=== PATIENT | female | born 1965 | race Caucasian/White ===

== ENCOUNTER 2020-04-26 08:35 | Outpatient (CLI) | payer BC, SELFPAY ==
--- NOTE | ~2020-04-26 | MM_ITS ---
EXAMINATION: MM screening avi BI w ana HISTORY: Screening mammogram TECHNIQUE: Craniocaudal and mediolateral oblique 3-D tomosynthesis images were obtained and synthetic 2-D images were generated. CAD analysis was submitted and interpreted. COMPARISON: 04/27/2018 limited right breast ultrasound 04/21/2018 bilateral mammogram, screening on the left, diagnostic on the right 07/24/2017 diagnostic right mammogram and limited right breast ultrasound 12/31/2016 bilateral digital screening mammogram BREAST PARENCHYMAL COMPOSITION: There are scattered areas of fibroglandular density. FINDINGS: There is a biopsy marker at what is likely a small lymph node in the right axillary tail ar ea; history of benign biopsy report. There is no evidence of suspicious mass, calcification, or architectural distortion to suggest malign merritt in either breast. There has been no suspicious interval change. IMPRESSION: 1. No mammographic evidence of malignancy. 2. Recommend routine screening mammography in one year. BI-RADS Category 1: Negative Reviewed, dictated and finalized at location A. CTOR CAREER
== END 2020-04-26 08:36 | disposition home or self-care (01) ==
LOC: ANHIMG 08:39
PROVIDERS: PCP Internal Medicine; Visit Provider Obstetrics & Gynecology
DX: Z12.31 Encounter for screening mammogram for malignant neoplasm of breast (principal)
CPT/HCPCS: 77063; 77067

== ENCOUNTER 2021-01-05 10:23 | Outpatient (CLI) | payer BC, SELFPAY ==
--- NOTE | ~2021-01-05 | US_ITS ---
EXAMINATION: US pelvic complete DATE: 01/05/2021 10:59 INDICATION: Pelvic and perineal pain. TECHNIQUE: Multiple transabdominal sonographic images of the pelvis were obtained. COMPARISON: None. FINDINGS: The uterus is absent. The ovaries are not visualized. There is no abnormal mass. IMPRESSION: 1. Absent uterus. 2. Ovaries not visualized. Reviewed, dictated and finalized at location A. ERS CLUB REPRESENTATIVE
== END 2021-01-05 10:24 | disposition home or self-care (01) ==
PROVIDERS: PCP Internal Medicine; Visit Provider Family Medicine
DX: R10.2 Pelvic and perineal pain (principal)
CPT/HCPCS: 76856

== ENCOUNTER 2021-04-10 08:55 | Outpatient (CLI) | payer BC, SELFPAY ==
--- NOTE | 2021-04-10 09:02 | ECG_ITS ---
Measurements Intervals [place] Rate: 59 P: 56 VA: 192 QRS: 48 QRSD: 85 T: 47 QT: 375 QTc: 373 Interpretive Statements SINUS BRADYCARDIA BORDERLINE ECG Electronically Signed On 04-10-2021 10:18:03 CRIME PREVENTION POLICE OFFICER by Alton Wick D.O.
== END 2021-04-10 08:56 | disposition home or self-care (01) ==
LOC: ANHSURGERY 08:58
PROVIDERS: PCP Internal Medicine; Visit Provider Obstetrics & Gynecology
DX: E78.5 Hyperlipidemia, unspecified (principal); Z01.818 Encounter for other preprocedural examination; R94.31 Abnormal electrocardiogram [ECG] [EKG]
CPT/HCPCS: 36415; 86850; 86900; 86901; 93005

== ENCOUNTER 2021-04-13 00:58 | Day surgery (SDC) | payer BC, SELFPAY ==
[2021-04-05 10:41] VITALS: BMI 24.7
--- NOTE | 2021-04-05 10:57 | PC.NURSE ---
Report to the Outpatient Waiting Room, entrance under the green pavilion located off [facility], at time 7:30 on date 04/13/21. OR Time: 9:30. - You and your visitor will be asked a series of questions to screen for COVID 19 for your protection. - A mask is required within the hospital. One visitor will be allowed to accompany the patient into the hospital. Patients visitor will be instructed to remain with patient at all times or leave the building. We will allow the visitor to come back to the postoperative area when patient is ready. Preoperative COVID Testing Requirements: No COVID Test needed if: (proof is required; if not received patient will have Rapid Test prior to entry) - Patient has received COVID Vaccine at least 14 days prior to procedure date or - Patient has positive COVID test result within last 90 days of surgery date. COVID Test needed if above criteria is not met Patients may have clear liquids (water, carbonated beverages, clear teas, apple juice) until 3 hours prior to surgery (6:30) with a maximum of 20 ounces. - No food from midnight until time of surgery Take the following medications with a SIP of water the morning of surgery: CLONAZEPAM Medications to discontinue per physician: N/A Date to take last dose: N/A Please no make-up, nail liberian, hairspray, perfume, deodorant, or body powder the day of surgery. No jewelry (including any body piercings) or valuables the day of surgery, leave them at home. Please take a shower or bath the night before, or the morning of, surgery with an antibacterial soap. Wear comfortable, loose fitting clothing. - Jewelry must be removed prior to entering the operating room. Rings and piercings that are not removed may be cut off. - The hospital will not accept responsibility for valuables. - Please leave all valuables, including medications, at home the day of surgery. If you are going home after surgery, a licensed automobile drivers must drive you home. - NO public transportation without another adult. - We recommend that an adult stay with you for 24 hours following discharge. - We also recommend that you do not drive, make important decision, drink alcoholic beverages, or take any drugs that were not prescribed by your health care provider for at least 24 hours after your discharge time. Follow any additional instructions given to you from your surgeon. Telephone instructions given to WINNIE JOHNSTON and asked if any additional questions and then verbalized understanding. Patient advised to call surgeon office or pre surgery nurse liaison [phone] if any additional questions.
--- NOTE | 2021-04-11 07:57 | PM.IMHP ---
H&P: HPI History of Present Illness Date/Time: 04/11/21 07:57 55-year-old 2 para 2 admitted for laparoscopic bilateral salpingo-oophorectomy secondary to pelvic pain and dyspareunia. She had ultrasound that looks unremarkable. She does however continue to have pain with intercourse and this has been unrelenting over some time. She has received the ACOG handout entitled laparoscopy. She had all questions answered. She asked to proceed Chief Complaint: Pelvic pain and dyspareunia Review of Systems Review of Systems: All systems reviewed & are unremarkable except as noted in HPI and below [facility] Social History Social History Smoking status: Never smoker Second hand tobacco smoke exposure: No Alcohol intake: current Drinks per week: 2 Substance use: never Substance use type: does not use Spiritual care concerns: No Meds Home Medications and Allergies Home Medications Medication Instructions Recorded Confirmed Type clonazepam 0.5 mg tablet 0.5 mg PO DAILY #90 tablet 12/14/20 04/05/21 Rx pravastatin 40 mg PO HS 04/05/21 04/05/21 History Allergies Allergy/AdvReac Type Severity Reaction Status Date / Time bee pollen Allergy Unknown Swelling Verified 04/05/21 10:40 sulfamethizole Allergy Unknown Rash Verified 04/05/21 10:40 sulfamethoxazole Allergy Unknown Rash Unverified 04/05/21 10:40 trimethoprim Allergy Unknown Rash Verified 04/05/21 10:40 adhesive AdvReac Unknown SKIN Verified 04/05/21 10:40 BLISTERS FROM EXTENDED EXPOSURE Exam Const: General: no acute distress Eyes: General: appearance normal, both eyes and all related structures Neck: Neck: supple and no JVD Thyroid: thyroid normal Resp: Effort & Inspection: normal respiratory effort Auscultation: clear to auscultation bilaterally Cardio: Rate: regular rate Rhythm: regular rhythm GI: Inspection: non-distended GI Palp: Yes Soft to palpation, No Tenderness to palpation present (GI) and No Guarding due to palpation present (GI) Auscultation: normal bowel sounds : External Female Exam: normal external appearance Speculum Exam - Vagina: normal appearance of the vagina Speculum Exam - Cervix: Cervix absent Bimanual exam- vagina & uterus: uterus absent Bimanual Exam- Adnexa, other: tender bilaterally Skin: General skin exam: no rashes or lesions noted Extrem: General: normal to inspection and no edema Psych: Mental Status: mental status grossly normal Affect: normal affect Assessment and Plan Additional Plan Impression: Chronic pelvic pain in a patient status post hysterectomy. Plan: Laparoscopic bilateral salpingo-oophorectomy. Risks and benefits reviewed. She has already begun on hormone replacement
[2021-04-13] VITALS (8 sets, daily range): BP systolic 93–123; BP diastolic 46–76; PULSE 67–94; RESP 12–16; TEMP 36.5–36.9; O2SAT 95–100
--- NOTE | 2021-04-13 06:40 | WPDHPUPDATE1 ---
History and Physical Update Update Date/Time: 04/13/21 06:40 History and Physical has been reviewed, including an updated exam of the patient. There are NO changes in the patient's condition. Risks, benefits, and alternatives have been discussed and questions answered. Patient agrees to proceed with procedure.
[2021-04-13] MEDS: ACETAMINOPHEN 500 MG TABLET 1000 MG PO (07:47)
[2021-04-13] MEDS: LACTATED RINGERS 1,000 ML 30 ML IV CONT ×2 (07:56→10:19)
[2021-04-13] MEDS: KETOROLAC 15 MG/ML VIAL (*BKC) IV PUSH (08:03)
--- NOTE | 2021-04-13 08:13 | WPDANESEPPF ---
Anes - Initial Pre Proc Eval Procedure: Operation Date: 04/13/21 09:30 Proposed Procedures p Laparoscopic Bilateral Salpingo Oophorectomy - Seven Altman MD Date/Time: 04/13/21 08:13 Surgeon: Seven Altman MD Pre Op Diagnosis: pain, dyspareunia Patient Data Age: 55 Gender: F Height: 1.6 m Weight: 63.7 kg Last Vital Signs Temp 36.9 C 04/13/21 08:04 Pulse 69 04/13/21 08:04 Resp 16 04/13/21 08:04 BP 115/46 L 04/13/21 08:04 Pulse Ox 97 04/13/21 08:04 Allergies Allergy/AdvReac Type Severity Reaction Status Date / Time bee pollen Allergy Mild Swelling Verified 04/13/21 07:45 sulfamethizole Allergy Mild Rash Verified 04/13/21 07:45 sulfamethoxazole Allergy Mild Rash Verified 04/13/21 07:45 trimethoprim Allergy Mild Rash Verified 04/13/21 07:45 adhesive AdvReac Mild SKIN Verified 04/13/21 07:45 BLISTERS FROM EXTENDED EXPOSURE Home Medications Medication Instructions Recorded Confirmed Type clonazepam 0.5 mg tablet 0.5 mg PO DAILY #90 tablet 12/14/20 04/13/21 Rx pravastatin 40 mg PO HS 04/05/21 04/13/21 History hydrocodone-acetaminophen 1 tablet PO Q4H PRN #30 tablet 04/13/21 Rx Patient hx anesthesia problems: none Family hx anesthesia problems: none Results Review: All pre-operative results and documents have been reviewed as part of the pre-operative evaluation. [facility] Surgical History Surgical History (Updated 04/13/21 @ 08:14 by Seven Washington MD) H/O: hysterectomy History of cholecystectomy Social History Social History Smoking status: Never smoker Second hand tobacco smoke exposure: No Alcohol intake: current Drinks per week: 2 Substance use: never Substance use type: does not use Living arrangements: with family Spiritual care concerns: No Anes - Eval Final PreProcedure Day of Procedure 04/13/21 08:13 Patient weight: normal Heart: regular rate and rhythm Lungs: clear to auscultation Airway: Mallampati scale class II Neurological: alert and oriented Last oral intake: >/= 8 hours ASA classification: II Emergent: no Anesthetic plan: proceed Anesthesia type and monitoring: general ETT and standard monitoring Results Review: All pre-operative results and documents have been reviewed as part of the pre-operative evaluation. Informed Consent: The patient's anesthetic plan and its attendant risks and benefits were discussed with the patient/family/POA. Questions were solicited and answers provided to the satisfaction of the patient/family/POA.
--- NOTE | 2021-04-13 10:06 | P.OP_ITS ---
Procedure Note - Detailed Date of Procedure 04/13/21 Pre-op Diagnosis pain, dyspareunia Post-op Diagnosis other (adhesions) Procedure Performed Laparoscopic bilateral salpingo-oophorectomy and extensive lysis of adhesions Surgeon Seven Altman MD Anesthesia general Indications This is a 55-year-old status post hysterectomy with severe pelvic pain bilateral ovarian cyst Findings Absent uterus and cervix. Ovaries were encased in small cyst but markedly adh erent to overlying omentum and bowel. The bowel was attached to the vaginal cuff. Description of Procedure The patient was prepped draped in the normal sterile fashion placed in the dorsal lithotomy position. Under excellent general trach anesthesia weighted speculum placed posterior fornix vagina. A sponge stick was placed in the bladder drained of clear urine. The weighted speculum was removed and gloves were changed. A supraumbilical incision made the Veress needle passed in the abdomen. Abdomen filled filled with CO2 gas filled [id number]. 5mm trocar advanced under direct visualization with the scope in no injury seen. Patient placed in Trendelenburg and a suprapubic incision made. The 5mm trocar advanced under direct visualizat ion assuring no injury. Right lower quadrant incision made and the 10mm trocar advanced under direct visualization assuring no injury. The above findings were seen the adhesions from the colon small bowel to the vagina were thick and thin as well. These were sharply dissected using series whose scissors. A tug and stretch method was undertaken and this was slowly cleared until the bowel was we ll cleared of the vaginal cuff. Irrigation was undertaken to clear. Bilateral ovarian cysts were seen. The left infundibulopelvic structure was skeletonized. Clamped burned and cut with the LigaSure. This was placed in the cul-de-sac in like fashion the right infundibulopelvic structure was skeletonized clamped burned and cut and the ovary and tube removed from the right. These were placed in an Endo-Catch and removed through the right lower quadrant incision. Irrigation undertaken to clear. No other abnormalities were seen the lower site removed. The gas removed from the abdomen. The incisions closed with 4 Monocryl glue. Patient was awakened and went to recovery in satisfactory condition. All sponge, needle, instrument counts were correct. There were no immediate complications noted Estimated Blood Loss 5 Drains No Packing No Pathology yes Complications No immediate complications Condition stable Disposition PACU
[2021-04-13] MEDS: ONDANSETRON INJ 4 MG/2 ML VIAL IV PUSH (11:30)
[2021-04-13] MEDS: SCOPOLAMINE 1.5 MG PATCH TRANSDERM (12:03)
[2021-04-13] MEDS: diphenhydrAMINE HCl INJ 50 MG/ML VIAL 25 MG IV PUSH (12:03)
== END 2021-04-13 13:00 | disposition home or self-care (01) ==
PROVIDERS: PCP Internal Medicine; Visit Provider Obstetrics & Gynecology
PROC: (CPT 49320; principal; 2021-04-13 09:30)
DX: R10.2 Pelvic and perineal pain (principal); N94.10 Unspecified dyspareunia; N73.6 Female pelvic peritoneal adhesions (postinfective); N83.202 Unspecified ovarian cyst, left side; N83.201 Unspecified ovarian cyst, right side; Z90.710 Acquired absence of both cervix and uterus
CPT/HCPCS: 58661; 88305; A9270; J0330; J1100; J1200; J1885; J2250; J2270; J2405; J2704; J7030; J7120

== ENCOUNTER 2021-07-11 07:59 | Outpatient (CLI) | payer BC, SELFPAY ==
--- NOTE | ~2021-07-11 | MM_ITS ---
EXAMINATION: MM screening avi BI w ana HISTORY: Screening mammogram TECHNIQUE: Craniocaudal and mediolateral oblique 3-D tomosynthesis images were obtained and synthetic 2-D images were generated. CAD analysis was submitted and interpreted. COMPARISON: 04/26/2020 bilateral screening mammogram 04/27/2018 limited right breast ultrasound 04/21/2018 bilateral mammogram 12/31/2016 BREAST PARENCHYMAL COMPOSITION: There are scattered areas of fibroglandular density. FINDINGS: Biopsy marker on the right; history of prior benign right breast biopsy. Stable mild fibrog landular asymmetry since 12/31/2016. There is no evidence of suspicious mass, calcification, or archi tectural distortion to suggest malignancy in either breast. There has been no suspicious interval alexandre nge. IMPRESSION: 1. No mammographic evidence of malignancy. 2. Recommend routine screening mammography in one year. BI-RADS Category 2: Benign finding(s). Reviewed, dictated and finalized at location A.
== END 2021-07-11 08:00 | disposition home or self-care (01) ==
LOC: ANHIMG 08:02
PROVIDERS: PCP Internal Medicine; Visit Provider Obstetrics & Gynecology
DX: Z12.31 Encounter for screening mammogram for malignant neoplasm of breast (principal)
CPT/HCPCS: 77063; 77067

== ENCOUNTER 2022-02-28 08:13 | Outpatient (CLI) | payer OTHER, SELFPAY ==
[2022-02-28 08:47] LABS: Basophils Absolute Auto 0.1 K/mm3 (0.0-0.1); Eosinophils Absolute Auto 0.2 K/mm3 (0-0.3); Eosinophils Percent Auto 2.9 % (0-4.4); Hematocrit 41.7 % (37.0-47.0); Hemoglobin 14.1 g/dL (12.0-15.0); Immature Granulocyte Absolute 0.03 K/mm3 (0.00-0.031); Immature Granulocyte Percent A 0.5 % (0-0.5); Lymphocytes Absolute Auto 1.74 K/mm3 (0.9-3.2); Lymphocytes Percent Auto 29.4 % (18.3-44.2); Mean Corpuscular HGB Conc 33.8 g/dl (32-36); Mean Corpuscular Hemoglobin 30.3 pg (26-34); Mean Corpuscular Volume 89.7 fl (80-100); Mean Platelet Volume 9.2 fl (7.4-10.4); Monocytes Absolute Auto 0.4 K/mm3 (0.1-0.6); Monocytes Percent Auto 6.9 % (2.6-8.5); Neutrophils Absolute Auto 3.5 K/mm3 (1.3-6.7); Neutrophils Percent Auto 59.3 % (45.5-73.1); Platelet Count Result 319 k/mm3 (150-375); Red Blood Count 4.65 M/mm3 (4.2-5.4); White Blood Count 5.9 K/mm3 (4.5-10.0)
[2022-02-28 08:57] LABS: Alanine Aminotransferase 20 U/L (6-35); Albumin Level 4.6 g/dL (3.5-5.1); Alkaline Phosphatase 96 U/L (38-126); Anion Gap 3 mmol/L (8-16); Aspartate Amino Transferase 23 U/L (14-36); Bilirubin,Total 0.9 mg/dL (0.2-1.3); Blood Urea Nitrogen 15 mg/dL (7-17); Calcium 9.4 mg/dL (8.4-10.2); Carbon Dioxide 32 mmol/L (22-30); Chloride 107 mmol/L (98-107); Cholesterol 190 mg/dL (0-200); Estimated Glomerular Filt Rate > 60; Glucose 96 mg/dL (65-110); HDL Direct 64 mg/dL; Magnesium 2.1 mg/dL (1.6-2.3); Potassium 4.2 mmol/L (3.4-5.0); Sodium 142 mmol/L (137-145); Triglycerides 88 mg/dL (<150)
[2022-02-28 09:08] LABS: LDL Cholesterol Direct 78 mg/dL
[2022-02-28 09:18] LABS: Hemoglobin A1C 5.1 % (<5.7)
[2022-02-28 09:58] LABS: Free T4 Free Thyroxine 1.18 ng/mL (0.78-2.19); Vitamin D 25 Hydroxy 26.9 ng/mL
== END 2022-02-28 08:14 | disposition home or self-care (01) ==
LOC: ANHLAB 08:14
PROVIDERS: PCP Internal Medicine; Visit Provider Internal Medicine
DX: R00.2 Palpitations (principal); Z13.1 Encounter for screening for diabetes mellitus; E78.5 Hyperlipidemia, unspecified; E55.9 Vitamin D deficiency, unspecified; Z13.29 Encounter for screening for other suspected endocrine disorder; Z79.899 Other long term (current) drug therapy
CPT/HCPCS: 36415; 80053; 80061; 82306; 83036; 83735; 84439; 84443; 85025

== ENCOUNTER 2022-04-03 08:54 | Outpatient (CLI) | payer OTHER, SELFPAY ==
--- NOTE | ~2022-04-03 | US_ITS ---
US abdomen complete EXAMINATION: US Abdomen Complete INDICATION: Abdomen pain. PROCEDURE: Realtime High Resolution abdomen ultrasound. COMPARISON: No prior studies for comparison FINDINGS: Gallbladder is surgically absent. Common bile duct measures 7 mm. Liver echotexture within normal limits without focal mass. Pancreas within normal limits. Pancreati c tail is obscured by bowel gas. Spleen is unremarkeable. Renal echotexture is within normal limits bilaterally without hydronephrosis, contour deforming mass or renal stone. There is a right renal cys t measuring 1.3 cm. Right kidney measures 10.3 cm. Left kidney measures 11.3 cm. Visualized aspects of the aorta and IVC are within normal limits. Portal vein is patent. IMPRESSION: 1: Unremarkable abdominal ultrasound. Reviewed, dictated and finalized at location A. IPPING CLERK
== END 2022-04-03 08:55 | disposition home or self-care (01) ==
PROVIDERS: PCP Internal Medicine; Visit Provider Internal Medicine
DX: R10.9 Unspecified abdominal pain (principal); R07.89 Other chest pain
CPT/HCPCS: 76700

== ENCOUNTER 2022-04-15 08:45 | Outpatient (CLI) | payer OTHER, SELFPAY ==
--- NOTE | ~2022-04-15 | XR_ITS ---
EXAMINATION: XR UGIAC w barium swallow DATE: 04/15/2022 09:20 INDICATION: Other chest pain. TECHNIQUE: The patient drank thick barium, gas-producing crystals, and thin barium. Fluoroscopy of th e esophagus, stomach, and proximal small bowel was performed. Fluoroscopy exposure time was 0.5 minut es. The total number of images was 229. Total dose-area product was 1.248 Gy-cm^2. COMPARISON: None. FINDINGS: There is no mass or stricture of the esophagus. Esophageal motility is normal. There is no hiatal hernia. There was no gastroesophageal reflux with provocative maneuvers. The stomach and proxi mal small bowel show normal folding patterns. IMPRESSION: 1. Normal upper gastrointestinal series and esophagram. Reviewed, dictated and finalized at location A. R SALES
== END 2022-04-15 08:46 | disposition home or self-care (01) ==
PROVIDERS: PCP Internal Medicine; Visit Provider Internal Medicine
DX: R07.89 Other chest pain (principal); R10.9 Unspecified abdominal pain; R13.10 Dysphagia, unspecified
CPT/HCPCS: 74246

== ENCOUNTER 2022-05-28 08:29 | Outpatient (CLI) | payer OTHER, SELFPAY ==
--- NOTE | 2022-05-28 08:36 | EST_ITS ---
Patient Info Name: Gayle Walton Age: 56 years : 1965 Gender: Female Ht: 63 in Wt: 148 lbs BSA: 1.74 m2 HR: 64 bpm BP: 115 / 83 mmHg Heart Rhythm: Sinus Rhythm Technical Quality: Good Exam Date: 05/28/2022 8:46 AM Exam Location: [facility] Pulmonary Patient Status: Outpatient Admit Date: 05/28/2022 Staff Ordering Physician: Osman Billy MD Regulatory Compliance Specialist: Imelda Coronado RDCS Attending Provider: DR. SANTOS Referring Physician: Mariajose TOWNSEND; Exam Type: CA stress echo Study Info Indications - ARROYO R07.9 - Chest pain, unspecified Treadmill exercise stress echocardiogram is performed. Summary 1. 1. Abnormal Rashad exercise stress test for ischemic ST changes by ECG criteria. 2. 2. Good functional capacity, achieving 10 METs of workload. 3. 3. Appropriate HR response to exercise. 4. 4. Appropriate HR recovery at 1 minute post exercise. 5. 5. Normal stress echocardiogram for ischemia by wall motion analysis. 6. 6. Patient informed of the above results. Stress Echo Findings Left Ventricle Appropriate increase in LV endocardial thickening with systole. Appropriate augmentation of contractility with systole. No wall motion abnormality. Left Ventricle Normal LV systolic function, no wall motion abnormality. Protocol: Rashad Stress ECG Details Stage: REST Duration (min): 7 min : 39 sec Speed (mph): 0.0 Grade (%): 0 HR (bpm): 67 SBP (mmHg): 116 DBP (mmHg): 83 METS: --- Stage: REST Duration (min): 15 min : 28 sec Speed (mph): 0.0 Grade (%): 0 HR (bpm): 72 SBP (mmHg): 116 DBP (mmHg): 83 METS: --- Stage: STAGE 1 Duration (min): 1 min : 0 sec Speed (mph): 1.7 Grade (%): 10 HR (bpm): 96 SBP (mmHg): 116 DBP (mmHg): 83 METS: --- Stage: STAGE 1 Duration (min): 2 min : 0 sec Speed (mph): 1.7 Grade (%): 10 HR (bpm): 108 SBP (mmHg): 116 DBP (mmHg): 83 METS: --- Stage: STAGE 1 Duration (min): 3 min : 0 sec Speed (mph): 1.7 Grade (%): 10 HR (bpm): 105 SBP (mmHg): 133 DBP (mmHg): 65 METS: --- Stage: STAGE 2 Duration (min): 1 min : 0 sec Speed (mph): 2.5 Grade (%): 12 HR (bpm): 117 SBP (mmHg): 133 DBP (mmHg): 65 METS: --- Stage: STAGE 2 Duration (min): 2 min : 0 sec Speed (mph): 2.5 Grade (%): 12 HR (bpm): 120 SBP (mmHg): 135 DBP (mmHg): 65 METS: --- Stage: STAGE 2 Duration (min): 3 min : 0 sec Speed (mph): 2.5 Grade (%): 12 HR (bpm): 131 SBP (mmHg): 135 DBP (mmHg): 65 METS: --- Stage: STAGE 3 Duration (min): 1 min : 0 sec Speed (mph): 3.4 Grade (%): 14 HR (bpm): 145 SBP (mmHg): 175 DBP (mmHg): 65 METS: --- Stage: STAGE 3 Duration (min): 1 min : 47 sec Speed (mph): 0.0 Grade (%): 0 HR (bpm): 150 SBP (mmHg): 175 DBP (mmHg): 65 METS: --- Stage: RECOVERY Duration (min): 0 min : 13 sec Speed (mph)
== END 2022-05-28 08:30 | disposition home or self-care (01) ==
PROVIDERS: PCP Internal Medicine; Visit Provider Internal Medicine
DX: I49.1 Atrial premature depolarization (principal); R06.09 Other forms of dyspnea; R07.89 Other chest pain
CPT/HCPCS: 93351

== ENCOUNTER 2022-06-11 14:10 | Outpatient (CLI) | payer OTHER, SELFPAY ==
--- NOTE | 2022-06-12 07:03 | WPDPFTINT ---
PFT Procedure Performed PFT Procedure Performed Spirometry with Pre/Post Bronchodilator Plethysmography (Lung Vol) Diffusing Cap (DLCO) Flow Vol Loop PFT Interpretation This is a pulmonary function test with pre and post-bronchodilator spirometry, plethysmography and diffusing capacity. The test was performed and results interpreted in accordance with the 2019 and 2005 ATS/ERS Task Force guidelines respectively using the Global Lung Function Initiative-2012 reference equations. Patient demonstrated good effort and cooperation. Reproducibility criteria were met. The quality of the pre bronchodilator spirometry maneuver was Grade A and post bronchodilator spirometry maneuver was Grade A. Findings: Spirometry: The expiratory flow tracing demonstrates a mid expiratory plateau in airflow creating a mild convex inflection referred to as the knee pattern. This was reproducible on all 3 pre bronchodilator and all 3 post bronchodilator efforts. The contour the inspiratory flow tracing is normal. the pre bronchodilator FVC is 3.81 L, 119% predicted. The pre bronchodilator FEV1 is 3.00 L, 118% predicted. The pre bronchodilator FEV1: FVC ratio is and at 79%. The post bronchodilator FVC is 3.73 L, representing a 2% decrease. The post bronchodilator FEV1 is 3.00 L, representing no change. The post bronchodilator FEV1: FVC ratio is 80%. Plethysmography: The total lung capacity is 5.26 L, 107% predicted. The functional residual capacity is 2.78 L, 101% predicted. The residual volume is 1.31 L, 72% predicted. Diffusing capacity: The diffusing capacity unadjusted for hemoglobin and carboxyhemoglobin is 20.4, 94% predicted. The diffusing capacity adjusted for alveolar volume is 4.84, 106% predicted. Impression: The expiratory flow tracing demonstrates a knee pattern which can be a normal variant or pathologic and has been attributed to a choke point section of the bronchial tree. The normal variant is more common in younger female patients, decreases with age and is more pronounced in the post bronchodilator efforts. The pattern has also been described with kyphosis, kyphoscoliosis, central obstructing mass, and post lung transplantation. Otherwise, the spirometry is normal without evidence of an obstructive abnormality. There is no significant improvement after inhaling a single dose of albuterol. The lung volumes are normal. The diffusing capacity is normal. There are no prior studies for comparison
== END 2022-06-11 14:11 | disposition home or self-care (01) ==
LOC: ANHPFT 14:12
PROVIDERS: PCP Internal Medicine; Visit Provider Internal Medicine
DX: R06.09 Other forms of dyspnea (principal); R07.89 Other chest pain
CPT/HCPCS: 94060; 94726; 94729

== ENCOUNTER 2022-06-18 09:15 | Outpatient (CLI) | payer OTHER, SELFPAY ==
--- NOTE | ~2022-06-18 | CT_ITS ---
EXAMINATION:CT diagnostic chest w con DATE: 06/18/2022 09:38 INDICATION: Abnormal pulmonary function tests. Shortness of breath. TECHNIQUE: Computed tomography (CT) of the chest was performed with 75 mL Omnipaque 350 intravenous c ontrast. Automated exposure control and iterative reconstruction technique were employed. The dose-le ngth product (DLP) was 170.49 mGy-cm. COMPARISON: None. FINDINGS: There is minimal scarring at the lung apices. No bronchiectasis or honeycombing. No pleural effusion. There is a multinodular goiter extending into the mediastinum. The heart size is normal. N o pericardial effusion. There are changes of cholecystectomy. There is mild thoracic spondylosis. The re is a benign bone island in T8 vertebral body. IMPRESSION: 1. Minimal scarring at the lung apices. 2. Multinodular goiter. Reviewed, dictated and finalized at location A.
== END 2022-06-18 09:16 ==
PROVIDERS: PCP Internal Medicine; Visit Provider Internal Medicine
DX: R94.2 Abnormal results of pulmonary function studies (principal); E04.2 Nontoxic multinodular goiter
CPT/HCPCS: 71260; Q9967

== ENCOUNTER 2022-09-24 08:22 | Outpatient (CLI) | payer OTHER, SELFPAY ==
--- NOTE | ~2022-09-24 | MM_ITS ---
EXAMINATION: MM screening [facility] BI w ana HISTORY: Screening mammogram TECHNIQUE: Craniocaudal and mediolateral oblique 3-D tomosynthesis images were obtained and synthetic 2-D images were generated. CAD analysis was submitted and interpreted. COMPARISON: 07/11/2021, 04/26/2020, 04/21/2018 BREAST PARENCHYMAL COMPOSITION: There are scattered areas of fibroglandular density. FINDINGS: No suspicious mass, calcification, or architectural distortion are identified in either yoselin ast to suggest malignancy. There has been no suspicious interval change. IMPRESSION: 1. No mammographic evidence of malignancy. 2. Recommend routine screening mammography in one year. BI-RADS Category 1: Negative Reviewed, dictated and finalized at location A.
== END 2022-09-24 08:23 | disposition home or self-care (01) ==
PROVIDERS: PCP Internal Medicine; Visit Provider Obstetrics & Gynecology
DX: Z12.31 Encounter for screening mammogram for malignant neoplasm of breast (principal)
CPT/HCPCS: 77063; 77067

== ENCOUNTER 2023-09-15 10:28 | Outpatient (CLI) | payer OTHER, SELFPAY ==
--- NOTE | ~2023-09-15 | CT_ITS ---
Non-contrast Head CT History: Headache Technique: Axial non-contrast imaging of the brain was performed. Dose reduction technique was used on this scan by utilizing automated exposure control and iterative reconstruction technique. The dose -length product (DLP) was 605.33 mGy-cm. Findings: There is no evidence of intracranial hemorrhage, mass lesion, or acute infarct. Brain par enchyma appears normal. The ventricles and subarachnoid spaces are normal in size. The calvarium ap pears normal. The visualized paranasal sinuses and mastoid air cells are clear. Impression: No significant abnormality seen. Reviewed, dictated and finalized at location . Impression: No significant abnormality seen.
== END 2023-09-15 10:29 | disposition home or self-care (01) ==
PROVIDERS: PCP Internal Medicine; Visit Provider Internal Medicine
DX: G44.52 New daily persistent headache (NDPH) (principal)
CPT/HCPCS: 70450

== ENCOUNTER 2023-10-30 08:20 | Outpatient (CLI) | payer OTHER, SELFPAY ==
--- NOTE | 2023-10-30 08:30 | ECG_ITS ---
Test Date: 2023-10-30 08:44:51 Measurements Intervals [place] Rate: 68 P: 49 UT: 169 QRS: 34 QRSD: 85 T: 51 QT: 387 QTc: 414 Interpretive Statements SINUS RHYTHM SUPRAVENTRICULAR TIGEMINY BASELINE ARTIFACT- I, II, III, AVR, AVL, AVF, V1-V6 ABNORMAL ECG No previous ECG available for comparison Electronically Signed On 10-30-2023 08:57:11 CDT by Alton Wick D.O.
== END 2023-10-30 08:21 | disposition home or self-care (01) ==
LOC: ANHSURGERY 08:27
PROVIDERS: PCP Internal Medicine; Visit Provider Obstetrics & Gynecology
DX: R10.2 Pelvic and perineal pain (principal); E78.5 Hyperlipidemia, unspecified
CPT/HCPCS: 36415; 86850; 86900; 86901; 93005

== ENCOUNTER 2023-11-07 04:22 | Day surgery (SDC) | payer OTHER, SELFPAY ==
[2023-10-28 17:00] VITALS: BMI 24.7
--- NOTE | 2023-10-28 17:01 | PC.NURSE ---
Report to the Outpatient Waiting Room, entrance under the green pavilion located off [facility], at time __7:15am on date __[id number] . Planned Procedure Time: ___9:15am____.? Time changes happen often and if your time is changed the preop area will call you the afternoon before. - You and your visitor will be asked to self-screen and do not enter if you have any COVID symptoms. Please call surgeon if you need to reschedule. - A mask is optional within the hospital at this time. Patients may have clear liquids (water, carbonated beverages, clear teas, apple juice) until 3 hours prior to surgery with a maximum of 20 ounces. STOP YOUR FLUIDS AT 6:15AM - No food from midnight until time of surgery and no smoking - Take only the following medications with a SIP of water on the morning of surgery: N/A (SINCE YOU ARE NOT CURRENTLY TAKING ANY MEDICATIONS.) DO NOT STOP ANY OF YOUR OTHER PRESCRIPTION MEDICATIONS PRIOR TO SURGERY EXCEPT THE FOLLOWING Medications to discontinue per physician N/A Date to take last dose N/A Please no make-up, nail yakut, hairspray, perfume, deodorant, or body powder the day of surgery.? No jewelry (including any body piercings) or valuables the day of surgery, leave them at home.? Please take a shower or bath the night before, or the morning of, surgery with an antibacterial soap.? Wear comfortable, loose fitting clothing.? - Jewelry must be removed prior to entering the operating room.? Rings and piercings that are not removed may be cut off. - The hospital will not accept responsibility for valuables.? - Please leave all valuables, including medications, at home the day of surgery. If you are going home after surgery, a licensed personal driver must drive you home.? - NO public transportation without another adult if you receive anesthesia. - We recommend that an adult stay with you for 24 hours following discharge. - We also recommend that you do not drive, make important decision, drink alcoholic beverages, or take any drugs that were not prescribed by your health care provider for at least 24 hours after your discharge time. Follow any additional instructions given to you from your surgeon. Telephone instructions given to ____WINNIE (PATIENT) and asked if any additional questions and then verbalized understanding. Patient advised to call surgeon office or pre surgery nurse liaison [phone] if any additional questions.
--- NOTE | 2023-11-04 12:47 | PM.IMHP ---
H&P: HPI History of Present Illness Date/Time: 11/04/23 12:47 Chief Complaint: pelvic pain Narrative: 57-year-old female status post hysterectomy BSO with severe pelvic pain and a history of adhesions she has noticed pain discomfort dyspareunia. She has had normal colonoscopy and has no complaints of bowel changes. Risks and benefits reviewed in full. She had all questions answered. She was to proceed PMFSH Past Medical History Medical History BMI 23.0-23.9, adult BMI 25.0-25.9,adult BMI 26.0-26.9,adult Breast cancer screening Chest pressure Colon cancer screening Diverticulitis ARROYO (dyspnea on exertion) Encounter for preventive health examination Encounter for routine adult health examination without abnormal findings Encounter to establish care Exercise-induced asthma Follow up Insomnia Multinodular goiter On custodial drug therapy Supraventricular beat, premature Vitamin D deficiency Surgical History Surgical History H/O: hysterectomy History of cholecystectomy Social History Social History Smoking status: Never smoker Second hand tobacco smoke exposure: Yes (as a child) Alcohol intake: current Drinks per week: 1 Alcohol use details: social/rare Substance use: never Substance use type: does not use Lack of Transportation: No Lack of Food: Never True Current Housing: I Have Housing Concerned About Future Housing: No Difficulty Paying Gas/Electric Bills: No Difficulty Paying for Meds: No Currently Unemployed: No Education: High School Diploma/GED Difficulty w/ Childcare or Family Care: No Living arrangements: with family Gender identity (if verbalized by the patient): Female Spiritual care concerns: No Meds Home Medications and Allergies Home Medications Medication Instructions Recorded Confirmed Type pravastatin 20 mg tablet See Rx Instructions .Route 11/28/22 10/28/23 Rx .COMPLEX #90 tabs metaxalone 800 mg tablet 800 mg PO TID PRN muscle pain #30 09/15/23 10/28/23 Rx tabs Allergies Allergy/AdvReac Type Severity Reaction Status Date / Time sulfamethizole Allergy Mild Rash Verified 10/28/23 16:35 sulfamethoxazole Allergy Mild Rash Verified 10/28/23 16:35 trimethoprim Allergy Mild Rash Verified 10/28/23 16:35 adhesive AdvReac Mild SKIN Verified 10/28/23 16:35 BLISTERS FROM EXTENDED EXPOSURE wasp venom Allergy Intermediate Swelling Uncoded 10/28/23 16:35 Exam Const: General: cooperative, healthy appearing and comfortable Nutritional Appearance: average body habitus Orientation/consciousness: oriented to person, oriented to place and oriented to time Resp: Effort & Inspection: normal respiratory effort Cardio: Rate: regular rate Rhythm: regular rhythm Heart sounds: S1 normal heart sound present and S2 normal heart sound present GI: Inspection: normal to inspection and other ( status post abdominoplasty) : External Female Exam: normal external appearance Speculum Exam - Vagina: normal appearance of the vagina Speculum Exam - Cervix: Cervix absent Bimanual exam- vagina & uterus: uterus absent Bimanual Exam- Adnexa, other: tender bilaterally Assessment and Plan Assessment and plan (1) Pelvic pain: Code(s): R10.2 - Pelvic and perineal pain Status: Acute Assessment and Plan: laparoscopy with lysis of adhesions
[2023-11-07] VITALS (8 sets, daily range): BP systolic 96–132; BP diastolic 47–80; PULSE 55–81; RESP 12–16; TEMP 36.3–36.4; O2SAT 95–100
--- NOTE | 2023-11-07 05:27 | WPDHPUPDATE1 ---
History and Physical Update Update Date/Time: 11/07/23 05:27 History and Physical has been reviewed, including an updated exam of the patient. There are NO changes in the patient's condition. Risks, benefits, and alternatives have been discussed and questions answered. Patient agrees to proceed with procedure.
[2023-11-07] MEDS: ACETAMINOPHEN 500 MG TABLET 1000 MG PO (07:50)
[2023-11-07] MEDS: LACTATED RINGERS 1,000 ML 30 ML IV CONT ×2 (07:50→10:40)
[2023-11-07] MEDS: KETOROLAC 15 MG/ML VIAL (*BKC) IV PUSH (07:55)
[2023-11-07] MEDS: SCOPOLAMINE 1 MG PATCH 1 PATCH TRANSDERM (09:00)
--- NOTE | 2023-11-07 09:03 | WPDANESEPPF ---
Anes - Initial Pre Proc Eval Procedure: Operation Date: 11/07/23 09:15 Proposed Procedures p Diagnostic Laparoscopy - Seven Mccoy MD Date/Time: 11/07/23 09:03 Surgeon: Seven Mccoy MD Pre Op Diagnosis: Pelvic Pain Patient Data Age: 57 Gender: F Height: 1.6 m Weight: 66 kg Last Vital Signs Temp 36.4 C 11/07/23 07:35 Pulse 80 11/07/23 07:35 Resp 16 11/07/23 07:35 BP 132/74 11/07/23 07:35 Pulse Ox 99 11/07/23 07:35 O2 Del Method Room Air 11/07/23 07:35 Allergies Allergy/AdvReac Type Severity Reaction Status Date / Time sulfamethizole Allergy Mild Rash Verified 11/07/23 07:57 sulfamethoxazole Allergy Mild Rash Verified 11/07/23 07:57 trimethoprim Allergy Mild Rash Verified 11/07/23 07:57 adhesive AdvReac Mild SKIN Verified 11/07/23 07:57 BLISTERS FROM EXTENDED EXPOSURE wasp venom Allergy Intermediate Swelling Uncoded 11/07/23 07:57 Home Medications Medication Instructions Recorded Confirmed Type pravastatin 20 mg tablet See Rx Instructions .Route 11/28/22 10/28/23 Rx .COMPLEX #90 tabs metaxalone 800 mg tablet 800 mg PO TID PRN muscle pain #30 09/15/23 10/28/23 Rx tabs hydrocodone 5 mg-acetaminophen 325 1 tablet PO Q4H PRN pain #20 tabs 11/07/23 Rx mg tablet Patient hx anesthesia problems: post op nausea/vomiting Family hx anesthesia problems: none Results Review: All pre-operative results and documents have been reviewed as part of the pre-operative evaluation. [facility] Past Medical History Medical History BMI 23.0-23.9, adult BMI 25.0-25.9,adult BMI 26.0-26.9,adult Breast cancer screening Chest pressure Colon cancer screening Diverticulitis ARROYO (dyspnea on exertion) Encounter for preventive health examination Encounter for routine adult health examination without abnormal findings Encounter to establish care Exercise-induced asthma Follow up Insomnia Multinodular goiter On jail drug therapy Supraventricular beat, premature Vitamin D deficiency Surgical History Surgical History H/O: hysterectomy History of cholecystectomy Social History Social History Smoking status: Never smoker Second hand tobacco smoke exposure: Yes (as a child) Alcohol intake: current Drinks per week: 1 Alcohol use details: social/rare Substance use: never Substance use type: does not use Lack of Transportation: No Lack of Food: Never True Current Housing: I Have Housing Concerned About Future Housing: No Difficulty Paying Gas/Electric Bills: No Difficulty Paying for Meds: No Currently Unemployed: No Education: High School Diploma/GED Difficulty w/ Childcare or Family Care: No Living arrangements: with family Gender identity (if verbalized by the patient): Female Spiritual care concerns: No Anes - Eval Final PreProcedure Day of Procedure 11/07/23 09:03 Patient weight: normal Heart: regular rate and rhythm Lungs: clear to auscultation Airway: Mallampati scale class II Neurological: alert and oriented Last oral intake: >/= 8 hours ASA classification: II Emergent: no Anesthesia type and monitoring: general ETT and standard monitoring Results Review: All pre-operative results and documents have been reviewed as part of the pre-operative evaluation. Informed Consent: The patient's anesthetic plan and its attendant risks and benefits were discussed with the patient/family/POA. Questions were solicited and answers provided to the satisfaction of the patient/family/POA.
--- NOTE | 2023-11-07 10:11 | W.PM.PROC2 ---
Procedure Note - Detailed Date of Procedure 11/07/23 Pre-op Diagnosis Pelvic Pain Post-op Diagnosis Same Procedure Performed Laparoscopic lysis of adhesions Surgeon Seven Mccoy MD Anesthesia General Indications she 7-year-old history of lesions with severe pain dyspareunia Findings absent uterus ovaries and tubes the sigmoid was stuck to the vaginal cuff. Adhesions were seen from the ascending colon to the right lateral sidewall. Description of Procedure Patient was prepped draped in the normal sterile fashion placed in the dorsal lithotomy position. Under excellent general trach anesthesia weighted speculum placed in posterior fornix vagina sponge stick placed in the bladder drained of clear urine the weighted speculum was removed and the gloves were changed. An infraumbilical incision made and the Veress needle passed into the abdomen. Abdomen filled with CO2 gas [id number]. The 5mm trocar advanced with the optic scope in no injury seen. Patient placed in Trendelenburg and a suprapubic incision made. The 5mm trocar advanced under direct visualization assuring no injury. The right lower quadrant incision made and a 5mm trocar advanced under direct visualization assuring no injury. Putting the adhesions on tension these were sharply dissected away from the vagina. The sponge stick was then used to move the vagina simulated fashion of intercourse and there was noted to be free of any adhesions vigorous irrigation then was undertaken until clear. The lower sites removed. The gas removed from the abdomen. The upper sites removed. The incisions closed with 4 Monocryl and glue. The sponge stick removed from the vagina the patient was awakened and went to recovery in satisfactory condition. All sponge, needle, instrument counts were correct. There were no immediate complications Estimated Blood Loss 5 Drains No Packing No Pathology None sent Complications No immediate complications Condition Stable Disposition PACU
[2023-11-07] MEDS: oxyCODONE HCL (*CRX) 5 MG TAB IR PO (11:40)
== END 2023-11-07 12:17 | disposition home or self-care (01) ==
PROVIDERS: PCP Internal Medicine; Visit Provider Obstetrics & Gynecology
PROC: (CPT 49320; principal; 2023-11-07 09:15)
DX: N73.6 Female pelvic peritoneal adhesions (postinfective) (principal); G47.00 Insomnia, unspecified; E55.9 Vitamin D deficiency, unspecified; I49.1 Atrial premature depolarization; J45.990 Exercise induced bronchospasm; Z79.891 Long term (current) use of opiate analgesic; Z98.890 Other specified postprocedural states; Z90.49 Acquired absence of other specified parts of digestive tract
CPT/HCPCS: 58660; A9270; J1100; J1885; J2250; J2371; J2405; J2704; J3010; J7120

== ENCOUNTER 2024-03-03 13:58 | Outpatient (CLI) | payer OTHER, SELFPAY ==
--- NOTE | ~2024-03-03 | MM_ITS ---
EXAMINATION: MM screening [facility] BI w ana HISTORY: Screening mammogram TECHNIQUE: Craniocaudal and mediolateral oblique 3-D tomosynthesis images were obtained and synthetic 2-D images were generated. CAD analysis was submitted and interpreted. COMPARISON: 09/24/2022, 07/11/2021, 04/26/2020 BREAST PARENCHYMAL COMPOSITION:Not Dense. There are scattered areas of fibroglandular density. FINDINGS: No suspicious mass, calcification, or architectural distortion are identified in either yoselin ast to suggest malignancy. There has been no suspicious interval change. IMPRESSION: No mammographic evidence of malignancy. Recommend routine screening mammography in one year. BI-RADS Category 1: Negative Reviewed, dictated and finalized at location . 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
== END 2024-03-03 13:59 | disposition home or self-care (01) ==
LOC: ANHIMG 14:00
PROVIDERS: PCP Internal Medicine; Visit Provider Obstetrics & Gynecology
DX: Z12.31 Encounter for screening mammogram for malignant neoplasm of breast (principal)
CPT/HCPCS: 77063; 77067

== ENCOUNTER 2024-05-07 11:50 | Outpatient (CLI) | payer OTHER, SELFPAY ==
--- NOTE | ~2024-05-07 | CT_ITS ---
CT of the Abdomen and Pelvis: Indication: Abdominal pain Technique: 2.5 mm axial scans were obtained through the abdomen and pelvis following intravenous adm inistration of 100 cc of Omnipaque 350. Dose reduction technique was used on this scan by utilizing a utomated exposure control and iterative reconstruction technique. The dose-length product (DLP) was 3 09.25 mGy-cm. Findings: Scans through the lung bases are unremarkable. The liver, spleen, pancreas, adrenals and kidneys are within normal limits. Cholecystectomy clips are present. No evidence of aortic aneurysm. No lymphadenopathy. There is wall thickening and inflammatory change of the distal sigmoid colon with underlying divertic ular disease, compatible with acute diverticulitis. No definite abscess or free air. No bowel obstruc tion. Images through the pelvis were performed. Urinary bladder unremarkable. No pelvic mass seen. No ascit es. Impression: Acute diverticulitis of the distal sigmoid colon. No abscess, free air, or obstruction. Reviewed, dictated and finalized at location . Impression: Acute diverticulitis of the distal sigmoid colon. No abscess, free air, or obst ruction.
[2024-05-07 12:42] LABS: Basophils Absolute Auto 0.1 K/mm3 (0.0-0.1); Basophils Percent Auto 0.5 % (0.2-1.2); Eosinophils Absolute Auto 0.3 K/mm3 (0-0.3); Eosinophils Percent Auto 3.5 % (0-4.4); Hematocrit 38.5 % (37.0-47.0); Hemoglobin 12.7 g/dL (12.0-15.0); Immature Granulocyte Absolute 0.03 K/mm3 (0.00-0.031); Immature Granulocyte Percent A 0.3 % (0-0.5); Lymphocytes Absolute Auto 1.96 K/mm3 (0.9-3.2); Lymphocytes Percent Auto 20.4 % (18.3-44.2); Mean Corpuscular Hemoglobin 30.2 pg (26-34); Mean Corpuscular Volume 91.7 fl (80-100); Mean Platelet Volume 9.6 fl (7.4-10.4); Monocytes Absolute Auto 0.5 K/mm3 (0.1-0.6); Monocytes Percent Auto 5.3 % (2.6-8.5); Neutrophils Absolute Auto 6.7 K/mm3 (1.3-6.7); Platelet Count Result 339 k/mm3 (150-375); Red Cell Distribution Width 12.2 % (11.5-14.5); White Blood Count 9.6 K/mm3 (4.5-10.0)
[2024-05-07 12:50] LABS: Alanine Aminotransferase 19 U/L (6-35); Albumin Level 4.4 g/dL (3.5-5.1); Alkaline Phosphatase 111 U/L (38-126); Anion Gap 11 mmol/L (4-12); Aspartate Amino Transferase 26 U/L (14-36); Blood Urea Nitrogen 14 mg/dL (7-17); Calcium 9.4 mg/dL (8.4-10.2); Carbon Dioxide 26 mmol/L (22-30); Chloride 103 mmol/L (98-107); Estimated Glomerular Filt Rate > 60; Glucose 94 mg/dL (65-110); Potassium 4.2 mmol/L (3.4-5.0); Sodium 140 mmol/L (137-145)
--- OUTSIDE RECORDS SUMMARY | 2024-05-07 12:52 | XMS_ITS | Continuity of Care Document ---
Author Organization [facility] Address [address] [place] [address] [address] [place] [address] Phone Care Team Providers Care Chief Librarian Work With Blind Name Role Phone Darron Rodarte DO Unavailable Unavailable Advance Directives Directive Yes / No Effective Date File Name No Information Encounters Encounter Description Practice Location Reason(s) For Visit Diagnoses Date Provider Providers Copied on Encounter [facility], [address], [place], [place], [id number], [place] tel:[phone] [facility] No Information Cayden Ramirez. [address] [place], [address], [place]. tel: [phone] Family History Family Member Type Diagnosis Age At Onset No Information Payers Payer name Insurance type Covered constitution party ID Authoriza tion(s) No Information Social History Type Description Quantity Date Captured Comments Sex Female Smoking Status No Information Chief Complaint And Reason For Visit No Information Reason For Referral Reason For Referral No Information History Of Present Illness Encounter Date Complaint History Of Prese nt Illness No Information Functional Status Date Functional Assessmen t No Information Instructions Date Instruction Additional Infor mation No Information Assessments Type Assessment Date No Information Patient Care Teams Name Effective Dates (start - stop) Status Members No Information
--- OUTSIDE RECORDS SUMMARY | 2024-05-07 12:52 | XMS_ITS | Clinical Summary ---
Author Organization [facility] [place] [address] Address [address] [place] [address] Care Team Providers Care Livestock Trucker Name Role Phone Osman Billy MD Primary Care Provider [phone] Allergies Active Allergy Reactions Criticality Noted Date Comments Sulfamethoxazole-Trimethoprim Rash Medium 2022 Social History Tobacco Use Types Packs/Day Years Used Date Smoking Tobacco: Never Assessed Personal Safety Answer Date Recorded Getting School Help Needed Not on file 03/22 Comments Unknown Sex and Gender Information Value Date Recorded Sex Assigned at Not on file 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 Gender Identity Not on file Sexual Orientation Not on file Plan of Treatment Health Maintenance Due Date Last Done Comments Breast Cancer Screening-Mammogram 1966 Cervical Cancer Screening 1966 Colon Cancer Screening-Colonoscopy 1966 Depression Screening 1966 Hepatitis C Screening 1966 DTaP/Tdap/Td Vaccine (1 - Tdap) 1977 Hepatitis B Screening 1984 Regular Well Visit/Exam 18-64 1984 Zoster Vaccine (1 of 2) 2016 Covid-19 Vaccine (4 - 2023-2 5 season) 2023 02/20/2021, 07/14/2020, 06/23/2020 Influenza Vaccine (#1) 2023 , 02/17/2017 Pneumococcal vaccine <65 Aged Out No longer eligible based on patient's age to complete this topic Insurance [facility] CHOICE PLUS Care Teams Livestock Trucker Relationship Specialty Start Date End Date Osman Billy MD [address] [facility] [address] [place] [id number] PCP - General Internal Medicine 03/07/22
--- OUTSIDE RECORDS SUMMARY | 2024-05-07 12:52 | XMS_ITS | Referral Summary ---
Author Organization [facility] [address] Address [address] [place] [address] Care Team Providers Care Home Hospice Aide Name Role Phone Osman Billy MD Primary Care Provider [phone] Allergies Active Allergy Reactions Criticality Noted Date Comments Sulfamethoxazole-Trimethoprim Rash Medium 2022 Social History Tobacco Use Types Packs/Day Years Used Date Smoking Tobacco: Never Assessed Personal Safety Answer Date Recorded Getting School Help Needed Not on file 03/22 Comments Unknown Sex and Gender Information Value Date Recorded Sex Assigned at Not on file 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 [address] [place] [address] PCP - General Internal Medicine 03/07/22
== END 2024-05-07 11:51 | disposition home or self-care (01) ==
PROVIDERS: PCP Internal Medicine; Visit Provider Internal Medicine
DX: R10.32 Left lower quadrant pain (principal); R19.4 Change in bowel habit; R50.9 Fever, unspecified; K57.32 Diverticulitis of large intestine without perforation or abscess without bleeding
CPT/HCPCS: 36415; 74177; 80053; 85025; Q9967

== ENCOUNTER 2024-05-24 14:25 | Outpatient (CLI) | payer OTHER, SELFPAY ==
--- NOTE | ~2024-05-24 | XR_ITS ---
XR abdomen/kub 1V Ordering provider: Osman Billy MD History: . R10.9 - Unspecified abdominal pain, BLOATING X 2 WEEKS . Comparison: None. FINDINGS: BOWEL: Nonobstructive bowel gas pattern. ORGANOMEGALY: None. SIGNIFICANT PATHOLOGIC CALCIFICATIONS: None. OTHER: No free air is seen under the diaphragm. IMPRESSION: NO ACUTE ABDOMINAL FINDINGS. Reviewed, dictated and finalized at location A.
--- OUTSIDE RECORDS SUMMARY | 2024-05-24 16:37 | XMS_ITS | Clinical Summary ---
Author Organization [facility] [address] Address [address] [place] [address] Care Team Providers Care Cork Slabs Sawyer Name Role Phone Osman Billy MD Primary Care Provider [phone] Allergies Active Allergy Reactions Criticality Noted Date Comments Sulfamethoxazole-Trimethoprim Rash Medium 2022 Social History Tobacco Use Types Packs/Day Years Used Date Smoking Tobacco: Never Assessed Personal Safety Answer Date Recorded Getting School Help Needed Not on file 03/22 Comments Unknown Sex and Gender Information Value Date Recorded Sex Assigned at Not on file 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
--- OUTSIDE RECORDS SUMMARY | 2024-05-24 16:37 | XMS_ITS | Referral Summary ---
Author Organization [facility] [place] [address] Address [address] [place] [address] Care Team Providers Care Egg Caser Name Role Phone Osman Billy MD Primary Care Provider [phone] Allergies Active Allergy Reactions Criticality Noted Date Comments Sulfamethoxazole-Trimethoprim Rash Medium 2022 Social History Tobacco Use Types Packs/Day Years Used Date Smoking Tobacco: Never Assessed Personal Safety Answer Date Recorded Getting School Help Needed Not on file 03/22 Comments Unknown Sex and Gender Information Value Date Recorded Sex Assigned at Not on file 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
--- OUTSIDE RECORDS SUMMARY | 2024-05-24 16:37 | XMS_ITS | Continuity of Care Document ---
Author Organization [facility] Address [id number] [place] [address] [place] [address] Phone Care Team Providers Care Senior Project Leader/Team Lead Name Role Phone Darron Rodarte DO Unavailable Unavailable Advance Directives Directive Yes / No Effective Date File Name No Information Encounters Encounter Description Practice Location Reason(s) For Visit Diagnoses Date Provider Providers Copied on Encounter [facility], [address], [place], [place], [id number], [place] tel:[phone] [facility] No Information Cayden Ramirez. [address] [place], [address], [place]. tel: [phone] Family History Family Member Type Diagnosis Age [...]
== END 2024-05-24 14:26 | disposition home or self-care (01) ==
PROVIDERS: PCP Internal Medicine; Visit Provider Internal Medicine
DX: R10.9 Unspecified abdominal pain (principal)
CPT/HCPCS: 74018

== ENCOUNTER 2024-08-31 01:01 | Day surgery (SDC) | payer OTHER, SELFPAY ==
[2024-08-12 10:47] VITALS: BMI 25.5
--- OUTSIDE RECORDS SUMMARY | 2024-08-31 01:04 | XMS_ITS | Continuity of Care Document ---
Author Organization [facility] Address [id number] [place] [address] [place] [address] Phone Care Team Providers Care Hydraulic Repairer Name Role Phone Darron Rodarte DO Unavailable Unavailable Advance Directives Directive Yes / No Effective Date File Name No Information Encounters Encounter Description Practice Location Reason(s) For Visit Diagnoses Date Provider Providers Copied on Encounter [facility], [address], [place], [place], [id number], [place] tel:[phone] [facility] [place] No Information Cayden Ramirez. [address] [place], [address], [place]. tel: [phone] Family History Family Member Type Diagnosis Age [...]
[2024-08-31 12:50] VITALS: BP 117/76; PULSE 79; RESP 16; TEMP 36.9; O2SAT 99; BMI 25.2
[2024-08-31] MEDS: LACTATED RINGERS 1,000 ML 150 ML IV CONT (13:09)
--- NOTE | 2024-08-31 13:49 | P.PNAN_ITS ---
Anes - Initial Pre Proc Eval Procedure: Operation Date: 08/31/24 14:00 Proposed Procedures p Colonoscopy - Titus Lorenzo MD Date/Time: 08/31/24 13:49 Surgeon: Titus Lorenzo MD Pre Op Diagnosis: Diverticulitis of intestine Patient Data Age: 58 Gender: F Height: 1.6 m Weight: 64.6 kg Last Vital Signs Temp 98.4 F 08/31/24 12:50 Pulse 79 08/31/24 12:50 Resp 16 08/31/24 12:50 BP 117/76 08/31/24 12:50 Pulse Ox 99 08/31/24 12:50 O2 Del Method Room Air 08/31/24 12:50 Allergies Allergy/AdvReac Type Severity Reaction Status Date / Time sulfamethizole Allergy Mild Rash Verified 08/31/24 12:56 sulfamethoxazole Allergy Mild Rash Verified 08/31/24 12:56 trimethoprim Allergy Mild Rash Verified 08/31/24 12:56 adhesive AdvReac Mild SKIN Verified 08/31/24 12:56 BLISTERS FROM EXTENDED EXPOSURE wasp venom Allergy Intermediate Swelling Uncoded 08/31/24 12:56 Home Medications ?Medication ?Instructions ?Recorded ?Confirmed ?Type No Home Medications 08/31/24 08/31/24 History Patient hx anesthesia problems: none Family hx anesthesia problems: none Results Review: All pre-operative results and documents have been reviewed as part of the pre- operative evaluation. 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 BMI 26.0-26.9,adult Surgical History Surgical History History of cholecystectomy H/O: hysterectomy Social History Social History Smoking status: Never smoker Second hand tobacco smoke exposure: Yes (as a child) Alcohol intake: current Drinks per week: 1 Alcohol use details: social/rare Substance use: never Substance use type: does not use Lack of Transportation: No Lack of Food: Never True Current Housing: I Have Housing Concerned About Future Housing: No Difficulty Paying Gas/Electric Bills: No Difficulty Paying for Meds: No Currently Unemployed: No Education: High School Diploma/GED Difficulty w/ Childcare or Family Care: No Living arrangements: with family Gender identity (if verbalized by the patient): Female Spiritual care concerns: No Anes - Eval Final PreProcedure Day of Procedure 08/31/24 13:49 Patient weight: normal Lungs: normal air movement Airway: Mallampati scale class III Neurological: alert and oriented Last oral intake: >/= 8 hours ASA classification: I Emergent: no Anesthetic plan: proceed Anesthesia type and monitoring: general GIVS and standard monitoring Results Review: All pre-operative results and documents have been reviewed as part of the pre-operative evaluation. Healthy, walks 1-2 fos, no cp or sob. Informed Consent: The patient's anesthetic plan and its attendant risks and benefits were discussed with the patient/family/POA. Questions were solicited and answers provided to the satisfaction of the patient/family/POA.
--- NOTE | 2024-08-31 14:31 | P.HP_ITS ---
H&P: HPI History of Present Illness Date/Time: 08/31/24 14:31 Chief Complaint: Screening colonoscopy Narrative: This is the patient's 2nd colonoscopy. There are no GI symptoms and there is no family history of colorectal cancer. 2 months ago, she had an episode of diverticulitis, was treated, and symptoms came back After treatment, receiving a 2nd course of antibiotics. currently she is asymptomatic. 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 BMI 26.0-26.9,adult Surgical History Surgical History History of cholecystectomy H/O: hysterectomy Social History Social History Smoking status: Never smoker Second hand tobacco smoke exposure: Yes (as a child) Alcohol intake: current Drinks per week: 1 Alcohol use details: social/rare Substance use: never Substance use type: does not use Lack of Transportation: No Lack of Food: Never True Current Housing: I Have Housing Concerned About Future Housing: No Difficulty Paying Gas/Electric Bills: No Difficulty Paying for Meds: No Currently Unemployed: No Education: High School Diploma/GED Difficulty w/ Childcare or Family Care: No Living arrangements: with family Gender identity (if verbalized by the patient): Female Spiritual care concerns: No Meds Home Medications and Allergies Home Medications ?Medication ?Instructions ?Recorded ?Confirmed ?Type No Home Medications 08/31/24 08/31/24 History Allergies Allergy/AdvReac Type Severity Reaction Status Date / Time sulfamethizole Allergy Mild Rash Verified 08/31/24 12:56 sulfamethoxazole Allergy Mild Rash Verified 08/31/24 12:56 trimethoprim Allergy Mild Rash Verified 08/31/24 12:56 adhesive AdvReac Mild SKIN Verified 08/31/24 12:56 BLISTERS FROM EXTENDED EXPOSURE wasp venom Allergy Intermediate Swelling Uncoded 08/31/24 12:56 Vital Signs Vital Signs - 24 hr 08/31/24 12:50 Temperature 98.4 F Pulse Rate 79 Respiratory Rate 16 Blood Pressure 117/76 Pulse Oximetry 99 Oxygen Delivery Room Air Exam Const: General: cooperative and healthy appearing Resp: Effort & Inspection: normal respiratory effort and able to speak in complete sentences Auscultation: clear to auscultation bilaterally Cardio: Rate: regular rate Rhythm: regular rhythm GI: Inspection: normal to inspection GI Palp: No No hepatosplenomegaly present Auscultation: normal bowel sounds Rectal Exam: deferred Skin: General skin exam: normal color Psych: Appearance: grossly normal Mental Status: mental status grossly normal Assessment and Plan Assessment and plan (1) Colon cancer screening: Code(s): Z12.11 - Encounter for screening for malignant neoplasm of colon Status: Acute Assessment and Plan: The patient is deemed a good candidate for the procedure. Consent signed. Will proceed.
--- NOTE | 2024-08-31 14:53 | S_PTH ---
PATIENT: Gayle Walton LOC: [facility] U#:[id number] AGE/SX: 58/F ROOM: RE08/31/[address]: Titus Lorenzo MD : 1965 BED: DIS: 08/31/2024 SPEC #: [id number] RECD: 09/01/24 06:48 STATUS: HUGO REPaxton #: [id number] PAPITO: 08/31/24 14:[address]: Titus Lorenzo DEPT: [facility] Surgical RECD BY: Rola Hathaway ENTERED: 09/01/24 06:48 SP TYPE: Surgical OTHR DR: Osman Billy MD Tissues: A - Colon Polypectomy Procedures: Hematoxylin and Eosin Stain Gross and Microscopic Level 4
[2024-08-31 14:57] VITALS: BP 105/75; PULSE 82; RESP 20; O2SAT 95
[2024-08-31 15:07] VITALS: BP 115/82; PULSE 95; RESP 20; O2SAT 98
[2024-08-31 15:17] VITALS: BP 109/81; PULSE 81; RESP 20; O2SAT 98
== END 2024-08-31 15:23 | disposition home or self-care (01) ==
PROVIDERS: PCP Internal Medicine; Referring Provider Internal Medicine; Visit Provider Internal Medicine Gastroenterology
PROC: 0DJD8ZZ Inspection of Lower Intestinal Tract, Via Natural or Artificial Opening Endoscopic (ICD-10-PCS; CPT 45378; principal; 2024-08-31 14:00)
DX: Z12.11 Encounter for screening for malignant neoplasm of colon (principal); K63.5 Polyp of colon; K57.30 Diverticulosis of large intestine without perforation or abscess without bleeding; K64.8 Other hemorrhoids; Z87.19 Personal history of other diseases of the digestive system
CPT/HCPCS: 45385; 88305; J2003; J2704; J7120